=== PATIENT | male | born 1940 | race Caucasian/White ===

== ENCOUNTER 2016-05-16 13:03 | Emergency (ER) | payer MEDICARE, OTHER ==
--- NOTE | 2016-05-22 14:37 | ER ---
ADMIT: 05/16/2016 RM/LOC: ER [facility] MR#: [id number] [address] [address]A [address]IVER [address] [place], [place] [id number] Emergency Room Report SEX: M AGE: 76 : 1940 DATE: ADDENDUM: CHIEF COMPLAINT: Fall, hit head. HISTORY OF PRESENT ILLNESS: This 76-year-old male who was walking just to the stairs. His shoe got caught on the carpet and he went forward, he hit the right side of his head. He had some superficial lacerations and abrasions and some swelling. He is on Coumadin, so the page is a partial trauma. PAST MEDICAL HISTORY: Atrial fibrillation and kidney surgery. MEDICATIONS: Please see nurse's note. He is on Coumadin. ALLERGIES: NO KNOWN ALLERGIES. SOCIAL HISTORY: Denies any tobacco, drug, or alcohol use. FAMILY HISTORY: Noncontributory. REVIEW OF SYSTEMS: CONSTITUTIONAL: Denies any fevers, chills, sweats, or confusion. HEENT: Denies any sore throat or drainage. CARDIOVASCULAR and RESPIRATORY: Denies any chest pain or shortness of breath. MUSCULOSKELETAL: The only complaint that he has is some upper shoulder pain and otherwise all systems otherwise negative. PHYSICAL EXAMINATION: VITAL SIGNS: Blood pressure is 149/81, pulse is 64, respirations 14, temperature is 96.7, tympanic; saturation of oxygen 95% on room air. GENERAL APPEARANCE: He is in no acute distress and alert. HEENT: He does have some superficial abrasions and lacerations to his right adventist with some swelling and ecchymosis. Eyes are PERRL and EOMs intact. TMs are non-erythemic. No hemotympanum. Throat is moist with no tonsillar swelling or exudate. No dental trauma. NECK: Nexus criteria is negative. He has no midline tenderness. No pain with rotation. SHOULDERS: He is tender just to the posterior shoulders in the trapezoid muscle region, but has full range of motion with the shoulder. HEART: Regular rate and rhythm at this time. LUNGS: CTA bilaterally. No wheezes, rales, or rhonchi. ABDOMEN: Soft, nontender. CHEST: Nontender. ADMIT: 05/16/2016 RM/LOC: ER [facility] MR#: [id number] [address] [address] [place] [address] Emergency Room Report SEX: M AGE: 76 : 1940 MUSCULOSKELETAL: He has full range of motion with all extremities. Hips are nontender to palpation. He walked into the emergency room. SKIN: Normal color, warm, and dry. The only abrasions noted are on the right side of his face. NEURO and PSYCH: He is alert and oriented x3. Mood and affect normal. COURSE IN THE EMERGENCY ROOM: CT of his head was done, it was negative for any skull fractures or any intracranial injury. PT is 27.4, INR is 2.56. I am having him take Tylenol for pain, ice, return the ER if he has any mental status changes or vomiting. I am having him hold his Coumadin just for 1 day. CLINICAL IMPRESSION: Contusion to head. ELIEZER Hall / Riky Paulson MD / yanna JOB #: [id number] CC: Riky Paulson MD, Attending Physician [facility] Physician, Family Physician
== END 2016-05-16 15:00 | disposition home or self-care (01) ==
LOC: ER 13:03
PROC: 0HQ1XZZ Repair Face Skin, External Approach (ICD-10-PCS; principal; 2016-05-16)
DX: S01.81XA Laceration without foreign body of other part of head, initial encounter (principal); Z79.01 Long term (current) use of anticoagulants; W22.8XXA Striking against or struck by other objects, initial encounter

== ENCOUNTER → 2016-06-05 | Outpatient (CLI) | payer MEDICARE, OTHER | END | disposition home or self-care (01) | LOC: RAD.S 05-31 14:00 | DX: M25.512 Pain in left shoulder (principal); M54.2 Cervicalgia; M19.012 Primary osteoarthritis, left shoulder; M47.812 Spondylosis without myelopathy or radiculopathy, cervical region ==